=== PATIENT | male | born 1970 | race American Indian/Alaskan Native ===

== ENCOUNTER 2020-06-16 11:06 | Emergency (ER) | payer MEDICAID ==
[2020-06-16 13:04] LABS: Basophils % (Auto) 0.6 % (0.0-1.8); Eosinophils # (Auto) 0.6 K/mm3 (0.0-0.4); Eosinophils % (Auto) 10.1 % (0.0-4.3); Hematocrit 38.9 % (35.5-45.6); Hemoglobin 12.9 gm/dl (11.8-15.2); Lymphocytes # (Auto) 2.1 K/mm3 (1.2-5.4); Lymphocytes % (Auto) 33.8 % (13.4-35.0); Mean Corpuscular HGB Conc 33 % (32-34); Mean Corpuscular Volume 97 fl (84-94); Monocytes # (Auto) 0.5 K/mm3 (0.0-0.8); Monocytes % (Auto) 7.4 % (0.0-7.3); Platelet Count 251 K/mm3 (140-440); Red Blood Count 4.01 M/mm3 (3.65-5.03); Red Cell Distribution Width 13.9 % (13.2-15.2)
[2020-06-16 13:24] LABS: BUN/Creatinine Ratio 20; Blood Urea Nitrogen 22 mg/dL (9-20); Calcium 8.9 mg/dL (8.4-10.2); Hemolysis Index 18
--- NOTE | 2020-06-16 13:28 | Emergency Department Report ---
ED Seizure HPI - General Chief Complaint: Seizure Stated Complaint: SEIZURE Time Seen by Provider: 06/16/20 11:58 Source: patient, EMS Mode of arrival: Stretcher Limitations: No Limitations - History of Present Illness Initial Comments: 49-year-old male with past medical history of previous CVA with residual left- sided weakness, seizures that started after CVA, and hypertension presents to the hospital from [facility] post seizure that occurred prior to arrival. Patient states he had his typical preseizure prodrome which involved nausea, drooling, stuttering, and jaw locks up followed by seizure activity. Patient denies headache, chest pain, shortness of breath, tongue laceration, or urinary incontinence. Patient is currently at [facility] for suicidal ideation. He last received Keppra 750 mg at 9 AM and has been compliant with his Dilantin. - Related Data Home Medications Medication Instructions Recorded Confirmed Last Taken Aspirin 81 mg PO DAILY 06/16/20 06/16/20 06/16/20 09:00 Coreg 25 mg PO BID 06/16/20 06/16/20 06/16/20 09:00 Lipitor 40 mg PO QHS 06/16/20 06/16/20 06/15/20 21:00 Prozac 10 mg PO DAILY 06/16/20 06/16/20 06/16/20 09:00 SEROquel 300 mg PO DAILY 06/16/20 06/16/20 06/15/20 21:00 Topamax 150 mg PO BID 06/16/20 06/16/20 06/16/20 09:00 Previous Rx's Medication Instructions Recorded Last Taken Type Dilantin 300 mg PO DAILY #30 06/16/20 Unknown Rx Keppra 750 mg PO BID #60 06/16/20 Unknown Rx Allergies Allergy/AdvReac Type Severity Reaction Status Date / Time No Known Allergies Allergy Unverified 06/16/20 11:20 ED Review of Systems ROS: Stated complaint: SEIZURE Other details as noted in HPI Comment: All other systems reviewed and negative ED Past Medical Hx - Past Medical History Hx Hypertension: Yes Hx CVA: Yes Hx Seizures: Yes Hx Psychiatric Treatment: Yes - Surgical History Additional Surgical History: surtical repair, akin left leg, - Social History Smoking Status: Light Tobacco Smoker Substance Use Type: Alcohol, Cocaine - Medications Home Medications: Home Medications Medication Instructions Recorded Confirmed Last Taken Type Aspirin 81 mg PO DAILY 06/16/20 06/16/20 06/16/20 09:00 History Coreg 25 mg PO BID 06/16/20 06/16/20 06/16/20 09:00 History Dilantin 300 mg PO DAILY #30 06/16/20 Unknown Rx Keppra 750 mg PO BID #60 06/16/20 Unknown Rx Lipitor 40 mg PO QHS 06/16/20 06/16/20 06/15/20 21:00 History Prozac 10 mg PO DAILY 06/16/20 06/16/20 06/16/20 09:00 History SEROquel 300 mg PO DAILY 06/16/20 06/16/20 06/15/20 21:00 History Topamax 150 mg PO BID 06/16/20 06/16/20 06/16/20 09:00 History ED Physical Exam - General Limitations: No Limitations - Other Other exam information: General: No acute distress Head: Atraumatic Eyes: normal appearance ENT: Moist mucous membranes Neck: Normal appearance, no midline tenderness Chest: Clear to auscultation bilaterally CV: Regular rate and rhythm Abdomen: Soft, normal bowel sounds, nontender, nondistended, no rebound or guarding Back: Normal inspection Extremity: Normal inspection, full range of motion Neuro: Alert O x 3, no facial asymmetry, speech clear, 4/5 left upper and left lower extremity strength (chronic since CVA), 5/5 right upper and lower extremity strength Psych: Appropriate behavior Skin: No rash ED Course Vital Signs 06/16/20 06/16/20 06/16/20 11:28 11:34 11:45 Temperature 97.5 F L Pulse Rate 65 Respiratory 16 21 Rate Blood Pressure 98/67 98/67 104/66 O2 Sat by Pulse 100 Oximetry 06/16/20 06/16/20 06/16/20 11:52 12:00 12:15 Temperature Pulse Rate 63 67 Respiratory 18 19 17 Rate Blood Pressure 105/69 105/78 O2 Sat by Pulse 100 99 Oximetry 06/16/20 06/16/20 06/16/20 12:30 12:45 13:00 Temperature Pulse Rate 66 65 57 L Respiratory 22 17 18 Rate Blood Pressure 99/61 100/66 102/63 O2 Sat by Pulse 99 100 Oximetry 06/16/20 06/16/20 06/16/20 13:15 13:31 13:45 Temperature Pulse Rate 65 57 L 66 Respiratory 14 22 12 Rate Blood Pressure 112/82 118/85 112/82 O2 Sat by Pulse 100 100 97 Oximetry 06/16/20 06/16/20 06/16/20 14:01 14:16 14:30 Temperature Pulse Rate 63 Respiratory 24 Rate Blood Pressure 131/99 90/40 105/84 O2 Sat by Pulse 81 L Oximetry 06/16/20 06/16/20 14:45 15:00 Temperature Pulse Rate 52 L 67 Respiratory 12 10 L Rate Blood Pressure 105/84 135/100 O2 Sat by Pulse 100 100 Oximetry ED Medical Decision Making - Lab Data Result diagrams: 06/16/20 12:37 06/16/20 12:37 Lab Results 06/16/20 06/16/20 06/16/20 Range/Units 12:37 12:37 12:37 WBC 6.1 (4.5-11.0) K/mm3 RBC 4.01 (3.65-5.03) M/mm3 Hgb 12.9 (11.8-15.2) gm/dl Hct 38.9 (35.5-45.6) % MCV 97 H (84-94) fl MCH 32 (28-32) pg MCHC 33 (32-34) % RDW 13.9 (13.2-15.2) % Plt Count 251 (140-440) K/mm3 Lymph % (Auto) 33.8 (13.4-35.0) % Clarke % (Auto) 7.4 H (0.0-7.3) % Eos % (Auto) 10.1 H (0.0-4.3) % Baso % (Auto) 0.6 (0.0-1.8) % Lymph # 2.1 (1.2-5.4) K/mm3 Clarke # 0.5 (0.0-0.8) K/mm3 Eos # 0.6 H (0.0-0.4) K/mm3 Baso # 0.0 (0.0-0.1) K/mm3 Seg Neutrophils % 48.1 (40.0-70.0) % Seg Neutrophils # 2.9 (1.8-7.7) K/mm3 Sodium 142 (137-145) mmol/L Potassium 4.3 (3.6-5.0) mmol/L Chloride 109.6 H (98-107) mmol/L Carbon Dioxide 22 (22-30) mmol/L Anion Gap 15 mmol/L BUN 22 H (9-20) mg/dL Creatinine 1.1 (0.8-1.3) mg/dL Estimated GFR > 60 ml/min BUN/Creatinine Ratio 20 % Glucose 83 (75-100) mg/dL Calcium 8.9 (8.4-10.2) mg/dL Magnesium 2.20 (1.7-2.3) mg/dL Phenytoin 0.8 L (10.0-20.0) ug/mL - Medical Decision Making Patient had a seizure prior to arrival after taking Keppra. Dilantin level subtherapeutic. 1 g load of Dilantin in the ED. No seizure activity in ED. Discharged back to [facility] Critical Care Time: No Critical care attestation.: If time is entered above; I have spent that time in minutes in the direct care of this critically ill patient, excluding procedure time. ED Disposition Clinical Impression: Breakthrough seizure, Subtherapeutic phenytoin level Disposition: DC-01 TO HOME OR SELFCARE Is pt being admited?: No Does the pt Need Aspirin: No Condition: Stable Instructions: Epilepsy (ED) Additional Instructions: Continue your current medications as prescribed. Take the medication as prescribed. Follow-up with your doctor or doctor/clinic provided. Return if symptoms worsen as indicated by your discharge instructions. Prescriptions: Dilantin 300 mg PO DAILY #30 Keppra 750 mg PO BID #60 Referrals: [facility] [Other] - 3-5 Days [facility] [Provider Group] - 3-5 Days Time of Disposition: 16:19
[2020-06-16] MEDS ORDERED: PHENYTOIN 1,000 MG in SODIUM CHLORIDE 0.9% 250ML 250 ML IV ONE (14:30)
[2020-06-16 22:06] VITALS: BP 109/80
== END 2020-06-16 22:05 | disposition home or self-care (01) ==
LOC: ED 11:06
DX: R56.9 Unspecified convulsions (principal); R89.2 Abnormal level of other drugs, medicaments and biological substances in specimens from other organs, systems and tissues; I10 Essential (primary) hypertension; F17.200 Nicotine dependence, unspecified, uncomplicated; F14.10 Cocaine abuse, uncomplicated; Z86.73 Personal history of transient ischemic attack (TIA), and cerebral infarction without residual deficits; Z98.890 Other specified postprocedural states; Z79.899 Other long term (current) drug therapy
CPT/HCPCS: 36415; 80048; 80185; 83735; 85025; 96365; 99284; J1165; J7050